=== PATIENT | male | born 1950 | race Caucasian/White ===

== ENCOUNTER 2020-10-30 08:47 | Day surgery (SDC) | payer MEDICARE, OTHER ==
[2020-10-30] VITALS (62 sets, daily range): BP systolic 123–148; BP diastolic 72–95; PULSE 60–79; TEMP 97.8–98.4; O2SAT 95–100
[~2020-10-30] VITALS: Ht 152.4 cm; Wt 82.3 kg
[2020-10-30 09:47] LABS: HEMATOCRIT 46.5 % (42.0-52.0); HEMOGLOBIN 15.3 g/dl (13.5-18.0); MEAN CELL VOLUME 86 fl (80.0-100.0); MEAN CORPUSCULAR HEMOGLOBIN 28 pg (27.0-31.0); MEAN CORPUSCULAR HGB CONC 33 g/dl (33.0-37.0); MEAN PLATELET VOLUME 9.9 fl (7.4-10.4); PLATELET COUNT 222 K/mm3 (130-400); RED BLOOD COUNT 5.44 M/mm3 (4.20-5.60); REDCELL DISTRIBUTION WIDTH-CV 13.3 % (11.5-14.5)
[2020-10-30 09:55] LABS: INR 1.1 (0.8-3.0); PROTHROMBIN TIME 12.6 SECONDS (9.7-12.8)
[2020-10-30 09:56] LABS: CALCIUM 8.6 mg/dL (8.4-10.2); CREATININE, serum 0.97 (0.66-1.25); POTASSIUM 4.3 mmol/L (3.4-5.0)
[2020-10-30 09:57] LABS: PARTIAL THROMBOPLASTIN TIME 29.8 SECONDS (26.0-37.0)
[2020-10-30] MEDS ORDERED: GLUCOPHAGE1000 MG PO (10:03)
[2020-10-30] MEDS ORDERED: NESINA25 PO (10:04)
[2020-10-30] MEDS ORDERED: JARDIANCE25 PO (10:06)
[2020-10-30] MEDS ORDERED: GLUCOTROL10 MG PO (10:06)
[2020-10-30] MEDS ORDERED: PLAVIX 75MG TAB75 MG PO (10:08)
[2020-10-30] MEDS ORDERED: VIAGRA100 M1 PO (10:08)
[2020-10-30] MEDS ORDERED: COREG 3.123.125 MG/T PO (10:09)
[2020-10-30] MEDS ORDERED: ASPIRIN E.C. 8181 MG PO (10:10)
[2020-10-30] MEDS ORDERED: COZAAR 25MG25 MG/TAB PO (10:11)
[2020-10-30] MEDS ORDERED: NEURONTIN600 MG/TAB PO (10:12)
[2020-10-30] MEDS ORDERED: LIPITOR 80MG80 MG PO (10:12)
[2020-10-30] MEDS ORDERED: MELATONIN5 M1 SL (10:13)
[2020-10-30] MEDS ORDERED: VITAMIN C500 MG PO (10:13)
[2020-10-30] MEDS ORDERED: OSTEO-BI-FLEX 21 TAB PO (10:14)
[2020-10-30] MEDS ORDERED: MEN'S ONE DAIL1 EACH PO (10:15)
--- NOTE | 2020-10-30 19:00 | NUR ---
Received report from HENRRY Bolden. Patient sitting quietly on edge of bed. He is alert and oriented and denies any pain or discomfort. All vitals within normal limits. Per report, 3mL of air remains in TR band to right wrist. Remaining 3mL is removed at this time; TR band still in place should bleeding occur. Access site is clean, dry, intact, soft, and without hematoma formation. All pulses palpable. Reinforced education regarding weight restriction to the RUE. Bed in lowest position. Call light within reach. No further needs noted at this time.
[2020-10-31] VITALS: BP 99/59; PULSE 62; TEMP 98.2
[2020-10-31 04:00] VITALS: BP 104/63; PULSE 80; TEMP 97.6
[2020-10-31 05:43] LABS: BASO # 0.1 (0.0-0.2); BASO % 0.7 % (0.0-2.0); EOS # 0.3 (0.0-0.7); EOS % 2.4 % (0-4.0); GRAN # 9.1 (1.4-6.5); GRAN % 79.9 % (42.2-75.2); HEMATOCRIT 43.5 % (42.0-52.0); HEMOGLOBIN 14.1 g/dl (13.5-18.0); LYMPH # 0.8 (1.2-3.4); LYMPH % 6.9 % (20.0-51.0); MEAN CELL VOLUME 87 fl (80.0-100.0); MEAN CORPUSCULAR HEMOGLOBIN 28 pg (27.0-31.0); MEAN CORPUSCULAR HGB CONC 32 g/dl (33.0-37.0); MEAN PLATELET VOLUME 9.8 fl (7.4-10.4); MONO # 1.1 (0.1-0.6); MONO % 9.7 % (1.7-9.3); PLATELET COUNT 209 K/mm3 (130-400); REDCELL DISTRIBUTION WIDTH-CV 13.3 % (11.5-14.5)
[2020-10-31 05:53] LABS: CALCIUM 8.3 mg/dL (8.4-10.2); CREATININE, serum 0.92 (0.66-1.25); POTASSIUM 4.4 mmol/L (3.4-5.0)
[2020-10-31 08:00] VITALS: BP 123/69; PULSE 69; TEMP 98.2
[2020-10-31] MEDS ORDERED: LOVAZA1 GM PO (09:04)
== END 2020-10-31 09:30 | disposition home or self-care (01) ==
LOC: COL.CAR 08:47 → ICU 14:20 → COL.CAR 10-31 09:30
PROVIDERS: Internal Medicine Cardiovascular Disease
DX: I25.110 Atherosclerotic heart disease of native coronary artery with unstable angina pectoris (principal); I35.0 Nonrheumatic aortic (valve) stenosis; I10 Essential (primary) hypertension; G25.81 Restless legs syndrome; G47.30 Sleep apnea, unspecified; E11.9 Type 2 diabetes mellitus without complications; Z20.822 Contact with and (suspected) exposure to COVID-19; Z95.1 Presence of aortocoronary bypass graft; Z88.8 Allergy status to other drugs, medicaments and biological substances; Z87.891 Personal history of nicotine dependence
CPT/HCPCS: OP; C1725; C1769; C1874; C1887; C9600; C9601; J0583; J1644; J2250; J3010; Q9967

== ENCOUNTER 2021-03-02 15:31 | Outpatient (RCR) | payer MEDICARE, OTHER ==
[~2021-03-02 15:31] MED LIST: ASPIRIN E.C. 8181 MG PO; COREG 3.123.125 MG/T PO; COZAAR 25MG25 MG/TAB PO; GLUCOPHAGE1000 MG PO; GLUCOTROL10 MG PO; JARDIANCE25 PO; LIPITOR 80MG80 MG PO; LOVAZA1 GM PO; MELATONIN5 M1 SL; MEN'S ONE DAIL1 EACH PO; NESINA25 PO; NEURONTIN600 MG/TAB PO; OSTEO-BI-FLEX 21 TAB PO; PLAVIX 75MG TAB75 MG PO; VIAGRA100 M1 PO; VITAMIN C500 MG PO
== END 2021-03-10 | disposition home or self-care (01) ==
LOC: COL.CR
DX: Z48.812 Encounter for surgical aftercare following surgery on the circulatory system (principal); Z95.5 Presence of coronary angioplasty implant and graft

== ENCOUNTER 2021-03-26 16:49 | Inpatient (IN) | payer MEDICARE, OTHER ==
[~2021-03-26] VITALS: Ht 152.4 cm; Wt 84.0 kg
[2021-03-26 17:28] LABS: BASO # 0.1 (0.0-0.2); BASO % 1.6 % (0.0-2.0); EOS # 0.3 (0.0-0.7); EOS % 4.7 % (0-4.0); GRAN # 3.8 (1.4-6.5); GRAN % 60.7 % (42.2-75.2); LYMPH # 1.3 (1.2-3.4); LYMPH % 20.9 % (20.0-51.0); MEAN CELL VOLUME 72 fl (80.0-100.0); MEAN CORPUSCULAR HGB CONC 29 g/dl (33.0-37.0); MEAN PLATELET VOLUME 9.7 fl (7.4-10.4); MONO # 0.8 (0.1-0.6); MONO % 11.9 % (1.7-9.3); PLATELET COUNT 351 K/mm3 (130-400); REDCELL DISTRIBUTION WIDTH-CV 16.2 % (11.5-14.5)
[2021-03-26 17:32] LABS: HEMATOCRIT 28.7 % (42.0-52.0); HEMOGLOBIN 8.4 g/dl (13.5-18.0); MEAN CORPUSCULAR HEMOGLOBIN 21 pg (27.0-31.0)
[2021-03-26 17:38] LABS: ALBUMIN 4.1 gm/dL (3.4-4.8); BILIRUBIN,TOTAL 0.2 mg/dL (0.2-1.2); C-REACTIVE PROTEIN 0.1 mg/dL (0.00-0.50); CALCIUM 9.4 mg/dL (8.4-10.2); CREATININE, serum 1.08 mg/dL (0.72-1.25); POTASSIUM 3.9 mmol/L (3.5-4.5); TOTAL PROTEIN 7.4 gm/dL (6.2-8.1)
[2021-03-26 17:44] LABS: TROPONIN-I 0.013 ng/mL (0.00-0.033)
[2021-03-26 18:46] LABS: RETIC # 0.09 M/mm3 (0.02-0.16); RETIC % 2.3 % (0.5-3.52)
[2021-03-26 19:02] LABS: TOTAL IRON BINDING CAPACITY 453 ug/dL (261-462)
[2021-03-26 19:18] LABS: IRON,SERUM 25 ug/dL (50-175)
[2021-03-26] MEDS ORDERED: GLUCOTROL 5M5 MG/TAB PO (19:42)
[2021-03-26 20:25] LABS: COLLECTION METHOD CLEAN CATCH
[2021-03-26 20:34] LABS: PH 6 (5-8); SQUAMOUS EPITHELIAL None Seen /hpf; URINE APPEARANCE Hazy; URINE BACTERIA None Seen /hpf; URINE BILIRUBIN Negative (NEGATIVE); URINE BLOOD Negative (NEGATIVE); URINE COLOR Yellow; URINE GLUCOSE 3+ (NEGATIVE); URINE KETONE Negative (NEGATIVE); URINE LEUKOCYTE ESTERASE Negative (NEGATIVE); URINE NITRATE Negative (NEGATIVE); URINE PROTEIN(semi-quant) Negative (NEGATIVE); URINE RBC None Seen /hpf; URINE UROBILINOGEN Negative (NEGATIVE)
[2021-03-26 20:52] VITALS: BP 131/66; PULSE 64; TEMP 98
[2021-03-26 21:08] VITALS: BP 127/66; PULSE 65; TEMP 97
[2021-03-26 21:46] VITALS: BP 133/76; PULSE 69; TEMP 98.7
[2021-03-26 21:48] VITALS: BP 133/76; PULSE 69; TEMP 98.7
[2021-03-26 22:19] VITALS: BP 134/71; PULSE 65; TEMP 98.3
--- NOTE | 2021-03-26 23:36 | NUR ---
PT ADMITTED TO THE UNIT, INTAKE AND ASSESSMENT COMPLETED. ORIENTED TO ROOM. STARTED PT ON BOWEL PREP. DENIES ANY NEEDS. WILL CONTINUE TO MONITOR.
[2021-03-27] VITALS (8 sets, daily range): BP systolic 109–153; BP diastolic 59–80; PULSE 60–72; TEMP 98.1–98.6
[2021-03-27 00:03] LABS: HEMATOCRIT 28.3 % (42.0-52.0); HEMOGLOBIN 8.5 g/dl (13.5-18.0)
--- NOTE | 2021-03-27 00:30 | NUR ---
PT BLOOD SUGAR AT 231, REFUSES INSULIN. STATES HE HAS MANAGED HIS BLOOD SUGAR FOR YEARS WITHOUT INSULIN AND DOES NOT WANT TO TAKE IT ESPECIALLY BECAUSE HES NPO AT THIS TIME. [facility] NOTIFIED. WILL CONTINUE TO MONITOR.
[2021-03-27 07:01] LABS: BASO # 0.1 (0.0-0.2); BASO % 1.2 % (0.0-2.0); EOS # 0.3 (0.0-0.7); EOS % 4.1 % (0-4.0); GRAN # 4.6 (1.4-6.5); GRAN % 69.9 % (42.2-75.2); LYMPH # 0.9 (1.2-3.4); MEAN CELL VOLUME 73 fl (80.0-100.0); MEAN CORPUSCULAR HGB CONC 30 g/dl (33.0-37.0); MEAN PLATELET VOLUME 9.8 fl (7.4-10.4); MONO # 0.7 (0.1-0.6); MONO % 10.3 % (1.7-9.3); PLATELET COUNT 303 K/mm3 (130-400); RED BLOOD COUNT 3.71 M/mm3 (4.20-5.60); REDCELL DISTRIBUTION WIDTH-CV 16.9 % (11.5-14.5)
[2021-03-27 07:04] LABS: HEMATOCRIT 27.1 % (42.0-52.0); HEMOGLOBIN 8.1 g/dl (13.5-18.0); MEAN CORPUSCULAR HEMOGLOBIN 22 pg (27.0-31.0)
[2021-03-27 07:26] LABS: CALCIUM 8.5 mg/dL (8.4-10.2); CREATININE, serum 0.82 mg/dL (0.72-1.25); POTASSIUM 4.4 mmol/L (3.5-4.5)
--- NOTE | 2021-03-27 08:38 | NUR ---
Patient sitting up on edge of bed talking with upon entry to the room. NS running as ordered. Morning meds not given due to NPO status for EGD/Colonoscopy scheduled for 1430. Patient continues to do bowel prep this AM. Stools have become liquid, but not clear at this time. Patient denies any chest pain, soa, or further needs at this time. Call light in reach. VSS. Patient A&O.
--- NOTE | 2021-03-27 11:22 | NUR ---
fire crew worker met with patient to discuss discharge plan. Patient lives at home with his Charlotte ([phone]) in [place]. Patient reports he is very active and independent and does not utilize any medical equipment. PCP is Dr. Espinoza and the patient uses [facility] for medications with no difficulty affording perscriptions. Patient reports he has a DPOA-HC established, and thinks that Dr. Espinoza's office has a copy. This addiction social worker contacted Dr. Espinoza office and they confirm that they do not have a copy. Patient notified. Patient plans to return home with no concerns at this time. *[place] plan: Home*
--- NOTE | 2021-03-27 13:12 | NUR ---
DAUGHTER, ANDREW, UPDATED ON PATIENT'S STATUS.
--- NOTE | 2021-03-27 16:02 | NUR ---
REPORT RECIEVED FROM HENRRY MAXWELL IN ENDO. VITALS MACHINE TAKING POST OP VITALS.
[2021-03-27 16:26] LABS: HEMATOCRIT 28.4 % (42.0-52.0); HEMOGLOBIN 8.4 g/dl (13.5-18.0)
[2021-03-27] MEDS ORDERED: FERROUSAL325 MG PO (16:38)
[2021-03-27] MEDS ORDERED: PROTONIX 40MG T40 MG PO (16:48)
--- NOTE | 2021-03-27 17:19 | NUR ---
DISCHARGE EDUCATION PROVIDED TO PT, EDUCATED PT ON NEW MEDICATIONS AND NEED TO CALL FOR APPT TIMES. IV REMOVED, NO OTHER NEEDS, PT REQUESTED TO WALK OUT WITH PT BELONGINGS. ACCOMPANYING HIM.
== END 2021-03-27 18:00 | disposition home health service (06) | DRG 812 ==
LOC: COL.ER 16:49 → SURG 18:37 → MEDICAL 18:37
PROVIDERS: Internal Medicine Gastroenterology; Nurse Practitioner; Nurse Practitioner Family; Physician Assistant; ADMIT Family Medicine
PROC: 0DB98ZX Excision of Duodenum, Via Natural or Artificial Opening Endoscopic, Diagnostic (ICD-10-PCS; principal; 2021-03-27 15:00)
PROC: 0DJD8ZZ Inspection of Lower Intestinal Tract, Via Natural or Artificial Opening Endoscopic (ICD-10-PCS; 2021-03-27 15:00)
DX: D50.9 Iron deficiency anemia, unspecified (principal); R55 Syncope and collapse; E78.5 Hyperlipidemia, unspecified; E11.40 Type 2 diabetes mellitus with diabetic neuropathy, unspecified; J44.9 Chronic obstructive pulmonary disease, unspecified; I25.10 Atherosclerotic heart disease of native coronary artery without angina pectoris; R91.8 Other nonspecific abnormal finding of lung field; I10 Essential (primary) hypertension; K90.0 Celiac disease
CPT/HCPCS: 99223-AI; 99233-AI; J1756; J2704; J7030; P9016

== ENCOUNTER 2021-04-09 10:00 | Outpatient (RCR) | payer MEDICARE, OTHER ==
[~2021-04-09] VITALS: Ht 152.4 cm; Wt 80.0 kg
[2021-04-09] VITALS (10 sets, daily range): BP systolic 103–121; BP diastolic 57–66; PULSE 67–72; TEMP 79.9–98.2
[~2021-04-09 10:00] MED LIST changes: +FERROUSAL325 MG PO; +GLUCOTROL 5M5 MG/TAB PO; +PROTONIX 40MG T40 MG PO
[2021-04-09] MEDS ORDERED: COREG 3.123.125 MG/T PO (10:41)
[2021-04-09] MEDS ORDERED: COZAAR 25MG25 MG/TAB PO (10:42)
[2021-04-09] MEDS ORDERED: GLUCOTROL 5M5 MG/TAB PO (10:45)
[2021-04-09] MEDS ORDERED: FERRO-TIME325 MG PO (10:51)
--- NOTE | 2021-04-09 14:55 | NUR ---
Pt tolerated transfusion without issue. IV DC'd with catheter intact. Pt exits dept with steady gait, has personal belongings.
== END 2021-04-09 14:55 | disposition home or self-care (01) ==
LOC: EUO 10:00
DX: D64.9 Anemia, unspecified (principal)
CPT/HCPCS: J7050; P9016

== ENCOUNTER 2021-04-27 12:56 | Outpatient (RCR) | payer MEDICARE, OTHER ==
[~2021-04-27 12:56] MED LIST changes: +FERRO-TIME325 MG PO
== END 2021-04-27 13:15 | disposition still patient (30) ==
LOC: COL.CR 12:56
DX: Z48.812 Encounter for surgical aftercare following surgery on the circulatory system (principal); Z95.5 Presence of coronary angioplasty implant and graft
CPT/HCPCS: J2704

== ENCOUNTER 2021-05-04 14:23 | Outpatient (RCR) | payer MEDICARE, OTHER ==
[2021-05-04] VITALS (8 sets, daily range): BP systolic 125–179; BP diastolic 68–78; PULSE 67–79; TEMP 98–98.4
== END 2021-05-04 19:06 | disposition home or self-care (01) ==
LOC: EUO 14:23
DX: D50.8 Other iron deficiency anemias (principal)
CPT/HCPCS: J7050; P9016

== ENCOUNTER 2021-06-19 11:46 | Outpatient (RCR) | payer SELFPAY | END 2021-07-03 | disposition home or self-care (01) | LOC: COL.CR | DX: Z20.89 Contact with and (suspected) exposure to other communicable diseases (principal) ==

== ENCOUNTER 2021-09-30 14:43 | Outpatient (RCR) | payer SELFPAY | END 2021-10-01 | LOC: COL.CR | DX: Z29.8 Encounter for other specified prophylactic measures (principal) ==

== ENCOUNTER 2021-10-30 16:00 | Outpatient (RCR) | payer SELFPAY | END 2021-10-31 | LOC: COL.CR | DX: Z12.31 Encounter for screening mammogram for malignant neoplasm of breast (principal) ==

== ENCOUNTER 2021-11-25 11:51 | Outpatient (RCR) | payer SELFPAY | END 2021-12-01 | LOC: COL.CR | DX: Z29.8 Encounter for other specified prophylactic measures (principal) ==

== ENCOUNTER 2021-12-28 11:47 | Outpatient (RCR) | payer SELFPAY | END 2021-12-31 | LOC: COL.CR | DX: Z29.8 Encounter for other specified prophylactic measures (principal) ==

== ENCOUNTER 2022-01-13 14:39 | Outpatient (RCR) | payer SELFPAY | END 2022-01-31 | LOC: COL.CR | DX: Z29.8 Encounter for other specified prophylactic measures (principal) ==

== ENCOUNTER → 2022-03-03 | Outpatient (RCR) | payer SELFPAY | LOC: COL.CR | DX: Z29.8 Encounter for other specified prophylactic measures (principal) ==

== ENCOUNTER 2023-07-01 12:18 | Outpatient (RCR) | payer MEDICARE, OTHER | END 2023-07-03 | disposition home or self-care (01) | LOC: COL.CR | DX: I25.2 Old myocardial infarction (principal) ==

== ENCOUNTER → 2023-08-03 | Outpatient (RCR) | payer MEDICARE, OTHER | END | disposition home or self-care (01) | LOC: COL.CR | DX: I25.2 Old myocardial infarction (principal) ==